=== PATIENT | male | born 1975 | race African-American/Black ===

== ENCOUNTER 2021-02-19 02:17 | Emergency (ER) | payer OTHER, SELFPAY ==
[2021-02-19 03:59] LABS: #Basophils 0.1 thou/uL (0.0-0.2); #Eosinphils 0.1 thou/uL (0.0-0.7); #Lymphocytes 2.2 thou/uL (1.20-3.40); #Monocytes 0.4 thou/uL (0.11-0.59); #Neutrophils 3.7 thou/uL (1.40-6.50); %Basophils 1.5 % (0.0-1.0); %Eosinophils 1.1 % (0.0-10.0); %Lymphocytes 33.7 % (21.0-51.0); %Monocytes 6.5 % (0.0-10.0); %Neutrophils 57.2 % (42.0-75.0); Hemoglobin 14.8 g/dL (14.0-18.0); Mean Corpuscular HGB CONC 30.9 g/dL (32.0-36.0); Mean Corpuscular Hemoglobin 29.4 pg (27.0-31.0); Mean Corpuscular Volume 95.2 fL (78.0-98.0); Mean Platelet Volume 7.2 fL (7.4-10.4); Platelet Count 279 thou/uL (130-400); RBC Distribution Width 13.4 % (11.5-14.5); Red Blood Cell (RBC) Count 5.04 mill/uL (4.70-6.10); White Blood Cell (WBC) Count 6.4 thou/uL (4.8-10.8)
[2021-02-19 04:18] LABS: ALT (SGPT) 96 U/L (8-55); AST (SGOT) 96 U/L (5-34); Albumin 4.4 g/dL (3.5-5.0); Alcohol 290 mg/dL (Less than 10); Alkaline Phosphatase 73 U/L (40-110); Anion Gap 14 mmol/L (10-20); BUN (Urea Nitrogen) 10 mg/dL (8.9-20.6); Bilirubin, Total 0.7 mg/dL (0.2-1.2); Calc. Creatinine Clearance 0 mL/min (70-130); Calcium 9.2 mg/dL (7.8-10.44); Carbon Dioxide 22 mmol/L (22-29); Chloride 108 mmol/L (98-107); Globulin 4.1 g/dL (2.4-3.5); Glucose 125 mg/dL (70-105); Potassium 3.4 mmol/L (3.5-5.1); Protein, Total 8.5 g/dL (6.0-8.3); Sodium 141 mmol/L (136-145)
[2021-02-19 04:20] LABS: Lipase 61 U/L (8-78)
[2021-02-19 05:10] LABS: SARS-CoV-2 NAA Rapid Test Not Detected (NotDetected)
== END 2021-02-19 05:25 ==
LOC: NAV ERS 02:17
DX: F10.129 Alcohol abuse with intoxication, unspecified (principal); Y90.8 Blood alcohol level of 240 mg/100 ml or more; Z20.822 Contact with and (suspected) exposure to COVID-19; V89.2XXA Person injured in unspecified motor-vehicle accident, traffic, initial encounter
CPT/HCPCS: 70450; 71250; 72125; 74177; 80053; 80307; 83690; 85025; G0390; U0002

== ENCOUNTER 2021-09-22 11:16 | Emergency (ER) | payer BC, SELFPAY | END 2021-09-22 12:25 | disposition home or self-care (01) | LOC: NAV ERS 11:16 | DX: M10.9 Gout, unspecified (principal); I10 Essential (primary) hypertension | CPT/HCPCS: 99283 ==

== ENCOUNTER 2023-04-28 19:27 | Emergency (ER) | payer BC, OTHER ==
[2023-04-28] MEDS ORDERED: cloNIDine 0.2 MG TAB ONE (19:52)
[2023-04-28] MEDS ORDERED: Sodium Chloride 0.9% 1,000 ML ONE (19:52)
[2023-04-28 20:21] LABS: #Basophils 0.1 thou/uL (0.0-0.2); #Lymphocytes 2.2 thou/uL (1.20-3.40); #Monocytes 0.7 thou/uL (0.11-0.59); #Neutrophils 4.9 thou/uL (1.40-6.50); %Basophils 1.8 % (0.0-1.0); %Eosinophils 0.5 % (0.0-10.0); %Lymphocytes 27.5 % (21.0-51.0); %Monocytes 8.5 % (0.0-10.0); %Neutrophils 61.6 % (42.0-75.0); Hematocrit 49.1 % (42.0-52.0); Hemoglobin 15.2 g/dL (14.0-18.0); Mean Corpuscular HGB CONC 30.9 g/dL (32.0-36.0); Mean Corpuscular Hemoglobin 29.3 pg (27.0-31.0); Mean Platelet Volume 8.1 fL (7.4-10.4); Platelet Count 279 10x3/uL (130-400); RBC Distribution Width 12.8 % (11.5-14.5); Red Blood Cell (RBC) Count 5.17 mill/uL (4.70-6.10); White Blood Cell (WBC) Count 7.9 10x3/uL (4.8-10.8)
[2023-04-28 20:34] LABS: Troponin I Less than 0.010 ng/mL (< 0.028)
[2023-04-28 20:35] LABS: ALT (SGPT) 88 U/L (8-55); AST (SGOT) 63 U/L (5-34); Albumin 4.7 g/dL (3.5-5.0); Alkaline Phosphatase 89 U/L (40-110); Anion Gap 31 mmol/L (10-20); BUN (Urea Nitrogen) 23 mg/dL (8.9-20.6); Bilirubin, Total 1.1 mg/dL (0.2-1.2); Calc. Creatinine Clearance 0 mL/min (70-130); Calcium 11.1 mg/dL (7.8-10.44); Carbon Dioxide 13 mmol/L (22-29); Chloride 95 mmol/L (98-107); Estimated GFR 34; Globulin 5.1 g/dL (2.4-3.5); Potassium 5.7 mmol/L (3.5-5.1); Protein, Total 9.8 g/dL (6.0-8.3); Sodium 133 mmol/L (136-145)
[2023-04-28 20:40] LABS: Glucose 729 mg/dL (70-105)
[2023-04-28 21:02] LABS: Bilirubin Negative (Negative); Blood, Urine Negative (Negative); Clarity Clear (Clear); Glucose, Urine (Dipstick) 500 mg/dL (Negative); Ketone, Urine > or equal to 80 mg/dL (Negative); Leukocyte Negative (Negative); Nitrite Negative (Negative); Protein, Urine (Dipstick) Negative (Neg-Trace); Urobilinogen 0.2 mg/dL (Less than 2); pH, Urine 5.5 (5.0-9.0)
[2023-04-28] MEDS ORDERED: Insulin Regular 300 UNITS/3 ML VIAL ONE (21:05)
[2023-04-28 21:08] LABS: CAUTI Indications for Culture Fever or rigors; WBC/HPF 0-3 HPF (0-3)
[2023-04-28 21:09] LABS: Urine Culture Reflex No No
[2023-04-28] MEDS ORDERED: INSULIN REGULAR IN 0.9 % NACL 100 UNITS/100 ML BAG ONE (22:02)
== END 2023-04-29 01:51 | disposition short-term general hospital (02) ==
LOC: NAV ERS 19:27
DX: E11.10 Type 2 diabetes mellitus with ketoacidosis without coma (principal); N28.9 Disorder of kidney and ureter, unspecified; I10 Essential (primary) hypertension; Z79.899 Other long term (current) drug therapy
CPT/HCPCS: 80053; 81001; 84484; 85025; 93005; 96361; 96365; 96366; 96376; J1815; J7050

== ENCOUNTER 2024-11-13 08:35 | Emergency (ER) | payer OTHER | END 2024-11-13 09:11 | disposition home or self-care (01) | LOC: NAV ERS 08:35 | DX: M10.9 Gout, unspecified (principal); E11.9 Type 2 diabetes mellitus without complications; I10 Essential (primary) hypertension; F17.210 Nicotine dependence, cigarettes, uncomplicated; Z79.899 Other long term (current) drug therapy | CPT/HCPCS: 96372; 99283; J1885 ==

== ENCOUNTER 2025-01-24 11:09 | Emergency (ER) | payer OTHER ==
[2025-01-24] MEDS ORDERED: Colchicine 0.6 MG TAB ONE (11:45)
== END 2025-01-24 12:05 | disposition home or self-care (01) ==
LOC: NAV ERS 11:09
DX: M10.9 Gout, unspecified (principal); E11.9 Type 2 diabetes mellitus without complications; I10 Essential (primary) hypertension; F17.210 Nicotine dependence, cigarettes, uncomplicated; Z79.899 Other long term (current) drug therapy
CPT/HCPCS: 96372; 99283; J1010